=== PATIENT | female | born 1975 ===

== ENCOUNTER 2017-01-27 15:41 | Emergency (ER) | payer OTHER ==
--- NOTE | 2017-01-27 16:22 | OBHP ---
Datetime: 01/27/2017 16:14 IP Adm Impression Other: nst reactive IP Admit Plan: Discharge home Admit Comment, IP Provider: chief complaint- evaluation/nst HPI 41 at 35.1 wga here for nst.had bpp done today which was normal.Patient denies vaginal bl eeding or loss of fluid course AMA PMH Anemia PSH denies OBGYN HX Social hx denies tobacco,alcohol or illcit drug use Exam see exam section A/P 41 y/o at 35.1 wga here for nst -nst reactive -patient discharged home.follow up in clinic tomm.plans to do weekly bpp and nst Pelvic Type - PN: Adequate Extremities - PN: Normal Abdomen - PN: Normal Back - PN: Normal Lungs - PN: Normal Heart - PN: Normal Neurologic - PN: Normal General - PN: Normal Contraction Comments Provider: occ Gestation - Est Wks by US: 35.1 IP Hx Assessment: The History has been Reviewed and is Current EGA AdmitDate IP: 35.1 Vital Signs Provider: Reviewed; Within Normal Limits IP Chief Complaint: evaluation FHR Category Provider Fetus A: Category I Genitourinary Exam: Normal DTRs - PN: Normal
== END 2017-01-27 16:20 | disposition home or self-care (01) ==
LOC: C.EROB 15:41
DX: Z36 Encounter for antenatal screening of mother (principal)

== ENCOUNTER 2017-03-02 07:23 | Inpatient (IN) | payer OTHER ==
[2017-03-02] MEDS ORDERED: Sodium Citrate/Citric Acid 15 ml Sol PO ONE (09:09)
[2017-03-02] MEDS ORDERED: cefOXitin IV 2 gm in Dextrose 2 GM/50 ML BAG IVPB ONE ×2 (09:09→10:05)
[2017-03-02 09:13] VITALS: BMI 32.8
--- NOTE | 2017-03-02 09:38 | OBADHP ---
Datetime: 03/02/2017 09:35 Admit Comment, IP Provider: at 39weeks her for repeat c/s and tubal ligation, no ctxs, vb, lof, +frm. obhx 1 x c/s pmh denies med pnv all nkda psh c/s soch denies a/p at 39weeks her for repeat c/s and btl admit to l_d npo/ivf labs cont to and efm skin abxs anthesia aware informed consent taken r/a/b discussed Pelvic Type - PN: Adequate Extremities - PN: Normal Abdomen - PN: Normal Back - PN: Normal Breast - PN: Normal Lungs - PN: Normal Heart - PN: Normal Thyroid - PN: Normal Neurologic - PN: Normal HEENT - PN: Normal General - PN: Normal FHR - Baseline A Provider: 130 Contraction Comments Provider: occ Comments, ACOG Physical Exam: gravid,non tender IP Hx Assessment: The History has been Reviewed and is Current Vital Signs Provider: Reviewed IP Chief Complaint: Scheduled Section NICHD Variability Prov Fetus A: Moderate 6-25bpm NICHD Accel Fetus A IP Provider: [id number] FHR Category Provider Fetus A: Category I Genitourinary Exam: Normal DTRs - PN: Normal EGA AdmitDate IP: 39.0 IP Adm Impression: Term, intrauterine ; No Active Labor; Intact Membranes IP Admit Plan: Admit to unit; Initiate Section protocol Datetime: 01/27/2017 16:14 IP Adm Impression Other: nst reactive Gestation - Est Wks by US: 35.1
[2017-03-02 09:39] LABS: BASO % 0.5 % (0.0-2.0); EOS % 0.4 % (0.0-4.0); HEMATOCRIT 35.9 % (34.0-47.0); LYMPH # 2.1 K/uL (1.0-4.3); LYMPH % 24.2 % (20.0-40.0); MEAN CELL VOLUME 80.5 fL (81.0-99.0); MEAN CORPUSCULAR HGB CONC 33.5 g/dL (33.0-37.0); MEAN PLATELET VOLUME 7.9 fL (7.2-11.7); MONO # 0.7 K/uL (0.0-0.8); MONO % 7.7 % (0.0-10.0); NRBC % 0.1 % (0.0-2.0); RED CELL DISTRIBUTION WIDTH 14.4 % (11.5-14.5); WHITE BLOOD COUNT 8.6 K/uL (4.8-10.8)
[2017-03-02 09:43] LABS: CHLORIDE 102 mmol/L (98-107)
[2017-03-02 09:44] LABS: POTASSIUM 3.9 mmol/L (3.6-5.2); SODIUM 133 mmol/L (132-148)
[2017-03-02 09:46] LABS: GFR AFRICAN-AMERICAN > 60
--- NOTE | 2017-03-02 09:46 | PCM.SURG1 ---
Surgeon's Initial Post Op Note - Surgeon's Notes Surgeon: dr duarte Elevator Worker: dr hutton Anesthesia Administered By: dr flores Pre-Operative Diagnosis: 41 yr at 39weeks repeat c/s and btl Operative Findings: see the op report Post-Operative Diagnosis: same Operation Performed: repeat c/s and btl Specimen/Specimens Removed: portion of right and left tube. cord blood Estimated Blood Loss: EBL {In ML}: 700 Blood Products Given: N/A Drains Used: No Drains Post-Op Condition: Good Date of Surgery/Procedure: 03/02/17 Time of Surgery/Procedure: 12:00
[2017-03-02 09:47] LABS: BLOOD UREA NITROGEN 12 mg/dL (7-17); CALCIUM 8.7 mg/dl (8.6-10.4); CARBON DIOXIDE 18 mmol/L (22-30); GLUCOSE,RANDOM 81 mg/dL (65-105)
[2017-03-02 09:50] LABS: RBC URINE 3 /hpf (0-3); URINE BACTERIA OCC (<OCC); URINE BILIRUBIN NEGATIVE (NEGATIVE); URINE BLOOD NEGATIVE (NEGATIVE); URINE COLOR Yellow (YELLOW); URINE GLUCOSE (UA) NORMAL (Normal); URINE KETONE NEGATIVE (NEGATIVE); URINE LEUKOCYTE ESTERASE 2+ Leu/uL (Negative); URINE PROTEIN NEGATIVE (NEGATIVE); URINE UROBILINOGEN NORMAL mg/dL (0.2-1.0); WBC URINE 8 /hpf (0-5)
[2017-03-02] MEDS ORDERED: Oxytocin 20 units in LR 2,000 ML IV ONE (10:04)
[2017-03-02] MEDS ORDERED: Sodium Citrate/Citric Acid 15 ml Sol ONE (10:05)
[2017-03-02] MEDS ORDERED: Oxytocin 10 Units/ml Inj ONE (12:01)
[2017-03-02] MEDS ORDERED: DiphenhydrAMINE 50 mg/ml Inj IVP PRN (12:32)
[2017-03-02] MEDS: Lactated Ringer's 1,000 ML IV SCH (17:15)
[2017-03-02] MEDS: Simethicone 80 mg Chewtab PO SCH ×2 (18:05→22:32)
--- NOTE | 2017-03-02 20:17 | OP ---
PROCEDURE DATE: 03/02/2017 PREOPERATIVE DIAGNOSIS: A 41-year-old 2, para 1 at 39 weeks, scheduled repeat secti on and bilateral tubal ligation. POSTOPERATIVE DIAGNOSIS: A 41-year-old 2, para 1 at 39 weeks, scheduled repeat sect ion and bilateral tubal ligation. SURGEON: Ford Mac MD URBAN SOCIOLOGIST SURGEON: Dr. Gaines, who was present throughout the procedure for retraction, exposure and p ushing at the time of the delivery and helping with the tubal ligation. ANESTHESIA: Spinal. ANESTHESIOLOGIST: Dr. Anaya. COMPLICATIONS: None. ESTIMATED BLOOD LOSS: 700 Ml. PROCEDURE PERFORMED: Repeat section and bilateral tubal ligation. PROCEDURE: After informed consent was obtained, the patient was brought to the operating room, place d on the table where spinal anesthesia was given and anesthesia was found to be adequate, she was pre pped and draped in normal sterile fashion. After that at the site of the previous skin incision, inc ision was made with a knife, subcutaneous with a Bovie. The fascia was excised and extended on both the sides using curved Duncan scissors. The fascia was first at the site of the pubic bone t hen at the site of the umbilicus. Rectus muscle was . The peritoneum was excised. We went into the abdominal cavity. Bladder blade was placed. Bladder flap was created. Lower uterine segm ent incision was made and extended on both sides using curved Duncan scissors. Baby delivered in KRYSTIN p osition. Cord was clamped and cut, baby weighed. Baby was handed to the waiting tire trucker. Cord gas was sent. Placenta delivered manually and sent to pathology. The uterus exteriorized, cleared of all the clots and debris. Uterine incision was closed using 1-0 Vicryl in nonlocking fashion, sec ond layer closure with the same stitch. After that, the decision was to look at the tubes, both ovar ies looked, tubal ligation. Bilateral tubal ligation was done on both the sides using modified P[place] oy technique. Portion of right and left tube was sent to pathology. Cul-de-sac was cleared of all c lots and debris. Uterus returned back to abdominal cavity. The tubal ligation was looked back again , it was not bleeding. After that, the gutters were cleared of all the clots and debris. Peritoneum was 2-0 Vicryl in nonlocking fashion. Muscle closed using Vicryl in nonlocking fashion. The fascia was closed using 1-0 Vicryl nonlocking fashion. Subcutaneous with 0 Vicryl interrupted fashion. Sk in was closed using april. The patient tolerated the procedure well. Laps and counts correct x 2. Ford Mac MD cc: [id number] TT: 03/02/2017 20:16:40 jn
[2017-03-02] MEDS ORDERED: Morphine 1 mg/ml preservative-free Inj(Duramorph) ONE (21:18)
[2017-03-03 08:01] LABS: BASO % 0.4 % (0.0-2.0); EOS % 0.1 % (0.0-4.0); HEMATOCRIT 31.5 % (34.0-47.0); LYMPH # 1.6 K/uL (1.0-4.3); LYMPH % 12.7 % (20.0-40.0); MEAN CELL VOLUME 81.3 fL (81.0-99.0); MEAN CORPUSCULAR HEMOGLOBIN 26.5 pg (27.0-31.0); MEAN CORPUSCULAR HGB CONC 32.5 g/dL (33.0-37.0); MEAN PLATELET VOLUME 7.9 fL (7.2-11.7); MONO # 0.8 K/uL (0.0-0.8); MONO % 6.3 % (0.0-10.0); RED CELL DISTRIBUTION WIDTH 14.2 % (11.5-14.5); WHITE BLOOD COUNT 12.8 K/uL (4.8-10.8)
[2017-03-03] MEDS ORDERED: Bisacodyl 5mg EC Tab PO ONE (09:11)
[2017-03-03] MEDS: Oxycodone/Acetaminophen 5/325 mg Tab PO PRN ×3 (09:37→18:00)
[2017-03-03] MEDS: Simethicone 80 mg Chewtab PO SCH ×4 (09:37→21:51)
[2017-03-03] MEDS: Lactated Ringer's 1,000 ML IV SCH (09:38)
--- NOTE | 2017-03-03 13:23 | OBPPN ---
Datetime: 03/03/2017 13:07 PP Pain Prov: Within normal limits PP Nausea Prov: Denies PP Flatus Prov: No PP BM Prov: No PP Breasts Prov: Normal PP Heart Prov: Normal PP Lungs Prov: Normal PP Abdomen/Uterus Prov: Normal PP Lochia Prov: Normal PP Vulva/Perineum Prov: Not Done PP CVA Tenderness Prov: Normal PP Extremities Prov: Normal PP C/S Incision Prov: Normal PP Progress Prov: Normal PP Comments Phys Exam Prov: Skin: warm, dry, intact Abdomen: obese. soft; (+) ABS. Incision with april - clean dry and intact. Fundus firm, mobile, mild and appropriate tenderness; 1FB below umbilicus. Mild lochia rubra. Extremities: no calf tenderness All other systems reviewed and are negative PP Impression Prov: Normal progression PP Plan Prov: Continue present management PP Progress Note Prov: Patient received isitting in chair, [facility], room 461. Breast- and mario tlefeeding. Ambulated to bed without difficulty. S/P pain medications; pain scale now 5/10. Deneis na usea, vomiting this morning. P.E.: as above. Obese, in NAD. Awake, alert, oriented to time person and place. Pleasant and coope rative. present POD#1 H/H 10.3/31.5 Assessment: POD#1 41 yo P2, S/P repeat C/S with BTL. Afebrile, vital signs stable. Anemia noted; a symptomatic and hemodynamically stable. Clinically stable. Plan: 1) Encourge ambulation in the hallways 2) Continue post management 3) iron supplementaiton Vital Signs Provider PP: Reviewed; Within Normal Limits
--- NOTE | 2017-03-04 08:27 | OBPPN ---
Datetime: 03/04/2017 08:25 PP Pain Prov: Within normal limits PP Nausea Prov: Denies PP Flatus Prov: Yes PP Abdomen/Uterus Prov: Normal PP Lochia Prov: Normal PP Extremities Prov: Normal PP Comments Phys Exam Prov: fudus below umblicus ext no edema,no calf ten incision clean and dry PP Impression Prov: Normal progression PP Plan Prov: Continue present management PP Progress Note Prov: pt was seen at bed side, pain under control, non/v, tolerating deit, voiding, min lochia, flatus+ pod#2 s/p c/s cont pain management cont post op care encourage ambulation Vital Signs Provider PP: Reviewed; Within Normal Limits
[2017-03-04] MEDS: Simethicone 80 mg Chewtab PO SCH ×4 (10:31→22:49)
[2017-03-04] MEDS: Oxycodone/Acetaminophen 5/325 mg Tab PO PRN ×3 (10:35→23:10)
[2017-03-05 09:20] VITALS: PULSE 72
[2017-03-05] MEDS: Simethicone 80 mg Chewtab PO SCH (10:11)
--- NOTE | 2017-03-05 11:34 | OBPPN ---
Datetime: 03/05/2017 11:29 PP Pain Prov: Within normal limits PP Nausea Prov: Denies PP Flatus Prov: Yes PP Breasts Prov: Normal PP Heart Prov: Normal PP Lungs Prov: Normal PP Abdomen/Uterus Prov: Normal PP Lochia Prov: Normal PP Vulva/Perineum Prov: Normal PP CVA Tenderness Prov: Normal PP Extremities Prov: Normal PP C/S Incision Prov: Normal PP Progress Prov: Normal PP Impression Prov: Normal progression PP Plan Prov: Discharge PP Progress Note Prov: S-patient states that her pain is well controlled.she is tolerating regular d iet.ambulating and voiding without difficulty.passing faltus O-VSS afebrile Fundus firm and below umbilicus Extremities no calf tenderness Incision clean,d ry and intact A/P Patient s/p vaginal delivery pod 3 doing well -discharge today -follow up in clinic in1 week Vital Signs Provider PP: Reviewed; Within Normal Limits
--- NOTE | 2017-03-05 11:36 | OBDCSUM ---
Datetime: 03/05/2017 11:32 Discharged to, Provider: Home Follow up at, Provider: [facility] Disch Instr Diet: Regular Discharge Instructions, Provider: Routine instructions given Discharge Diagnosis, Provider: Term Delivered Discharge Time: 03/05/2017 11:33 Follow up in weeks, Provider: 1 week Discharge Comment, Provider: go to er if you have fever, severe pain, heavy bleeding or any other pr oblems Discharge Diagnosis Prov Other: s/p csection
[2017-03-05] MEDS ORDERED: Oxycodone/Acetaminophen 5/325 mg Tab PO PRN (12:33)
[2017-03-05 17:11] VITALS: BP 123/81; RESP 20; TEMP 98; O2SAT 99
--- NOTE | 2017-03-09 20:03 | OBDS ---
DELIVERY PERSONNEL Delivery Doctor: Ford Mac MD Scrub Nurse: Jennifer Ugarte Tank Worker: Ciaran Krishnan RN Anesthesiologist: mark MATERNAL INFORMATION Delivery Anesthesia: Spinal Medications in Delivery: pitocin 20/cytotec 1000 Estimated Blood Loss (ml): 700 Placenta Cultured: No Maternal Complications: None Provider Comments: uncomplicate section. LABOR SUMMARY EDC: 03/09/2017 00:00 No. Babies in Womb: 1 Attempted: No Labor Anesthesia: None LABOR INFORMATION Oxytocin: N/A Group B Beta Strep: Negative Antibiotics # of Doses: 1 Antibiotics Time of Last Dose: 11 Steroids Given: None Reason Steroids Not Administered: Not Applicable MEMBRANES Membranes Rupture Method: Artificial Rupture of Membranes: 03/02/2017 11:57 Length of Rupture (hrs): 0.02 Amniotic Fluid Color: Clear Amniotic Fluid Amount: Moderate Amniotic Fluid Odor: Normal STAGES OF LABOR Stage 3 hrs: 0 Stage 3 min: 1 VAGINAL DELIVERY Episiotomy: None Laceration Extension: N/A Laceration Type: None CSECTION DELIVERY Primary Indication: Repeat Elective Secondary Indication: N/A CSection Urgency: Elective CSection Incidence: Repeat Labor: No Labor Elective: Elective CSection Incision: Lower Uterine Transverse BABY A INFORMATION Infant Delivery Date/Time: 03/02/2017 11:58 Method of Delivery: Born in Route : No : N/A Forceps: N/A Vacuum Extraction: N/A Shoulder Dystocia : No SHOULDER DYSTOCIA BABY A Infant Delivery Date/Time: 03/02/2017 11:58 PRESENTATION/POSITION BABY A Presentation: Cephalic Cephalic Presentation: Vertex Vertex Position: Left Occipital Anterior Breech Presentation: N/A PLACENTA INFORMATION BABY A Placenta Delivery Time : 03/02/2017 11:59 Placenta Method of Delivery: Manual Removal Placenta Status: Delivered SCORES BABY A Heart Rate 1 min: >100 bpm Resp Effort 1 min: Good Cry Reflex Irritability 1 min: Cough or Sneeze or Pulls Away Muscle Tone 1 min: Active Motion Color 1 min: Body [place], Extremities Blue SCORE 1 MIN: 9 Heart Rate 5 min: >100 bpm Resp Effort 5 min: Good Cry Reflex Irritability 5 min: Cough or Sneeze or Pulls Away Muscle Tone 5 min: Active Motion Color 5 min: Body [place], Extremities Blue SCORE 5 MIN: 9 INFANT INFORMATION BABY A Gestational Age at Delivery: 39.0 Gestational Status: Term Outcome : Liveborn Condition : Stable Infant Sex: Female IDENTIFICATION/MEDS BABY A ID Band Number: [id number] ID Band Location: Left Leg; Left Arm Sensor Applied: Yes Sensor Number: [id number] Sensor Location : Cord Clamp WEIGHT/LENGTH BABY A Birthweight (gms): 2990 Infant Weight (lb): 6 Weight (oz): 9 Infant Length Inches: 19.00 Infant Length cms: 48.3 CORD INFORMATION BABY A No. Cord Vessels: 3 Nuchal Cord : N/A Cord Blood Taken: Yes ASSESSMENT BABY A Infant Complications: None Physical Findings at Delivery: Within Normal Limits Respirations: Appears Normal Licensed Weigher/ALS Called : No Care By: dr alvarez Transferred To: Remains with Mother
== END 2017-03-05 20:00 | disposition home or self-care (01) | DRG 370 ==
LOC: C.4D 08:52 → C.4M 14:25
PROVIDERS: ADMIT Obstetrics & Gynecology; ATTEND Obstetrics & Gynecology
PROC: 10D00Z1 Extraction of Products of Conception, Low, Open Approach (ICD-10-PCS; principal; 2017-03-02)
PROC: 0UL70ZZ Occlusion of Bilateral Fallopian Tubes, Open Approach (ICD-10-PCS; 2017-03-02)
DX: O34.211 Maternal care for low transverse scar from previous cesarean delivery (principal); O99.02 Anemia complicating childbirth; D64.9 Anemia, unspecified; Z30.2 Encounter for sterilization; Z3A.39 39 weeks gestation of pregnancy; Z37.0 Single live birth